=== PATIENT | female | born 1970 | race Caucasian/White ===

== ENCOUNTER 2019-08-29 12:00 | Emergency (ER) | payer OTHER, BC ==
[~2019-08-29] VITALS: Ht 170.2 cm; Wt 93.7 kg
[2019-08-29] MEDS ORDERED: METOCLOPRAMIDE 5 MG/ML, 2ML ONE (12:52)
[2019-08-29] MEDS ORDERED: DIPHENHYDRAMINE 50 MG/ML, 1ML ONE (12:52)
[2019-08-29] MEDS ORDERED: KETOROLAC 30 MG/1 ML ONE (12:52)
[2019-08-29] MEDS ORDERED: METHOCARBAMOL 500 MG TABLET ONE ×2 (12:52→12:53)
[2019-08-29] MEDS ORDERED: METOCLOPRAMIDE 5 MG/ML, 2ML IVPush ONE (13:00)
[2019-08-29] MEDS ORDERED: DIPHENHYDRAMINE 50 MG/ML, 1ML IVPush ONE (13:00)
[2019-08-29] MEDS ORDERED: SODIUM CHLORIDE FLUSH 10ML SYR IVF ONE (13:00)
[2019-08-29] MEDS ORDERED: KETOROLAC 30 MG/1 ML IVPush ONE (13:00)
[2019-08-29] MEDS ORDERED: SODIUM CHLORIDE 0.9% 1,000ML IVBOLUS ONE (13:00)
[2019-08-29] MEDS ORDERED: METHOCARBAMOL 750 MG TABLET PO ONE (13:00)
[2019-08-29 14:01] VITALS: BP 154/89
--- NOTE | 2019-08-29 15:03 | NUR ---
Patient given discharge instructions and they have confirmed that they understand the instructions. Patient ambulatory with steady gait. Pt left with Rx, d/c paperwork, and all personal belongings. NADN. No needs expressed.
== END 2019-08-29 15:06 | disposition home or self-care (01) ==
LOC: ED 14:45
DX: G44.219 Episodic tension-type headache, not intractable (principal); G43.909 Migraine, unspecified, not intractable, without status migrainosus; M62.838 Other muscle spasm; E03.9 Hypothyroidism, unspecified; E11.9 Type 2 diabetes mellitus without complications; Z88.6 Allergy status to analgesic agent; Z88.8 Allergy status to other drugs, medicaments and biological substances
CPT/HCPCS: 96374; 96375; 99283; J1200; J1885; J2765; J7030

== ENCOUNTER 2020-10-26 07:02 | Inpatient (IN) | payer BC, OTHER ==
[~2020-10-26] VITALS: Ht 170.2 cm; Wt 85.0 kg
[2020-10-26] MEDS ORDERED: ASPIRIN 325 MG TABLET PO STA (07:20)
--- NOTE | 2020-10-26 07:20 | NUR ---
MEDICATED WITH 162MG OF ASPIRIN PER EMAR SWABBED FOR COVID AT 07:17AM
[2020-10-26] MEDS ORDERED: FENTANYL PF 100 MCG/2ML ONE (07:29)
[2020-10-26] MEDS ORDERED: MIDAZOLAM 1 MG/ML, 5ML ONE (07:29)
[2020-10-26] MEDS ORDERED: LIDOCAINE 2%, 20ML ONE (07:30)
[2020-10-26] MEDS ORDERED: BIVALIRUDIN 250 MG ONE ×2 (07:30→08:24)
[2020-10-26] MEDS ORDERED: HEPARIN 1,000 UNITS/ML, 10ML ONE (07:30)
[2020-10-26] MEDS ORDERED: TICAGRELOR 90 MG TABLET ONE (07:30)
[2020-10-26 07:35] LABS: BASOPHILS % (AUTO) 0 % (0-1); EOSINOPHILS % (AUTO) 0 % (1-7); LYMPHOCYTES % (AUTO) 15 % (22-44); MEAN CORPUSCULAR HEMOGLOBIN 29.9 pg (27.0-34.8); MEAN CORPUSCULAR HGB CONC 33.7 g/dL (32.4-35.8); MEAN PLATELET VOLUME 7.4 fL (7.4-10.4); MONOCYTES % (AUTO) 4 % (2-9); NEUTROPHILS % (AUTO) 80 % (42-75); PLATELET COUNT 273 x10^3/uL (130-400); RED CELL DISTRIBUTION WIDTH 13.1 % (9.6-15.2)
[2020-10-26 07:36] LABS: MD NO
--- NOTE | 2020-10-26 07:40 | NUR ---
TO PHY THERAPIST AT 0926
--- NOTE | 2020-10-26 07:42 | NUR ---
Patient admitted to the emergency [facility] through triage Triage complete at 0708/Ecg completed at same time Stemi activated at 0710 Full checklist including proper equipment application and consent for angiography completed by Dr. Vaughan by 0716 After clarification that medical laboratory technicians room ready patient transferred at 0740
[2020-10-26] MEDS ORDERED: ASPIRIN 81 MG TABLET CHEW ONE (07:54)
[2020-10-26] MEDS ORDERED: ASPIRIN 325 MG TABLET PO ONE (08:00)
[2020-10-26] MEDS ORDERED: ASPIRIN 81 MG TABLET CHEW PO ONE (08:00)
[2020-10-26] MEDS ORDERED: SODIUM CHLORIDE FLUSH 10ML SYR IVF PRN (08:00)
[2020-10-26 08:06] LABS: INTERNATIONAL NORMALIZED RATIO 0.94 (0.93-1.1)
[2020-10-26] MEDS ORDERED: BIVALIRUDIN 250 MG in SODIUM CHLORIDE 0.9% 50 ML IV SCH (08:30)
[2020-10-26] MEDS ORDERED: SODIUM CHLORIDE 0.9% 1,000 ML IV SCH (08:30)
[2020-10-26] MEDS: ASPIRIN 81 MG TABLET EC PO SCH (08:55)
[2020-10-26] MEDS: TICAGRELOR 90 MG TABLET PO SCH ×2 (08:55→19:54)
[2020-10-26] MEDS ORDERED: METOPROLOL TARTRATE 25 MG TAB PO ONE (09:00)
[2020-10-26] MEDS: ACETAMINOPHEN 325 MG TABLET PO PRN (10:40)
[2020-10-26] MEDS: INSULIN LISPRO 100 UNITS/ML, PEN SQ-INSULIN SCH ×3 (10:40→20:04)
[2020-10-26] MEDS ORDERED: EMPA25TA PO (10:53)
[2020-10-26] MEDS ORDERED: [UNRECOGNIZED DRUG - OTHER] (10:53)
[2020-10-26] MEDS ORDERED: SUMA50TA3 PO (10:53)
[2020-10-26] MEDS ORDERED: DULA1.5P INJ (10:53)
[2020-10-26] MEDS ORDERED: TOPI25TA52 PO (10:53)
[2020-10-26] MEDS ORDERED: LISI10TA2 PO (10:53)
[2020-10-26] MEDS ORDERED: LEVO100T PO (10:53)
[2020-10-26] MEDS ORDERED: phenergan PO (10:53)
[2020-10-26] MEDS ORDERED: SERT-237 PO (10:53)
[2020-10-26] MEDS ORDERED: ADENOSINE 6 MG/2 ML ONE (13:31)
[2020-10-26] MEDS: MORPHINE SULFATE 4 MG/ML, 1ML IVPush PRN ×2 (14:39→19:55)
[2020-10-26] MEDS: METOPROLOL TARTRATE 25 MG TAB PO SCH (17:27)
[2020-10-26] MEDS: ATORVASTATIN 80 MG TABLET PO SCH (19:55)
[2020-10-27 04:31] LABS: ANION GAP 9 mmol/L (5-15); CALCIUM 9.3 mg/dL (8.5-10.1); CHLORIDE 106 mmol/L (98-107)
[2020-10-27] MEDS: METOPROLOL TARTRATE 25 MG TAB PO SCH ×2 (05:42→18:25)
[2020-10-27] MEDS: INSULIN LISPRO 100 UNITS/ML, PEN SQ-INSULIN SCH ×4 (07:00→21:39)
[2020-10-27] MEDS: LEVOTHYROXINE 100 MCG TABLET PO SCH (08:17)
[2020-10-27] MEDS: ASPIRIN 81 MG TABLET EC PO SCH (08:17)
[2020-10-27] MEDS: TOPIRAMATE 25 MG TABLET PO SCH (08:17)
[2020-10-27] MEDS: LISINOPRIL 10 MG TABLET PO SCH (08:17)
[2020-10-27] MEDS: TICAGRELOR 90 MG TABLET PO SCH ×2 (08:17→20:32)
[2020-10-27 14:59] VITALS: BP 98/60
[2020-10-27 19:14] VITALS: BP 112/73
[2020-10-27] MEDS: ATORVASTATIN 80 MG TABLET PO SCH (20:32)
[2020-10-27] MEDS: SERTRALINE 50MG TABLET PO SCH (20:32)
[2020-10-27 20:36] VITALS: BP 115/75
[2020-10-27] MEDS: ACETAMINOPHEN 325 MG TABLET PO PRN (21:38)
[2020-10-28 01:12] VITALS: BP 99/57
[2020-10-28 05:39] VITALS: BP 102/68
[2020-10-28] MEDS: LEVOTHYROXINE 100 MCG TABLET PO SCH (05:42)
[2020-10-28] MEDS: INSULIN LISPRO 100 UNITS/ML, PEN SQ-INSULIN SCH ×4 (05:45→20:46)
[2020-10-28 07:43] VITALS: BP 114/77
[2020-10-28] MEDS: TICAGRELOR 90 MG TABLET PO SCH ×2 (09:40→20:50)
[2020-10-28] MEDS: LISINOPRIL 10 MG TABLET PO SCH (09:40)
[2020-10-28] MEDS: ASPIRIN 81 MG TABLET EC PO SCH (09:40)
[2020-10-28] MEDS: TOPIRAMATE 25 MG TABLET PO SCH (09:40)
[2020-10-28 14:18] VITALS: BP 107/73
[2020-10-28] MEDS ORDERED: METOPROLOL SUCCINATE 25 MG TAB.ER.24H PO SCH (18:00)
[2020-10-28] MEDS: MORPHINE SULFATE 4 MG/ML, 1ML IVPush PRN (19:52)
[2020-10-28] MEDS ORDERED: NITROGLYCERIN 0.4 MG/SPRAY SL PRN (20:00)
[2020-10-28] MEDS ORDERED: NITROGLYCERIN 0.4 MG BOTTLE (25 TABS) SL PRN (20:00)
[2020-10-28 20:22] VITALS: BP 109/73
[2020-10-28] MEDS: ATORVASTATIN 80 MG TABLET PO SCH (20:46)
[2020-10-28] MEDS: SERTRALINE 50MG TABLET PO SCH (20:50)
[2020-10-29 00:52] VITALS: BP 82/50
[2020-10-29 04:57] VITALS: BP 101/66
[2020-10-29] MEDS: LEVOTHYROXINE 100 MCG TABLET PO SCH (04:59)
[2020-10-29 06:08] LABS: BASOPHILS % (AUTO) 1 % (0-1); EOSINOPHILS % (AUTO) 1 % (1-7); LYMPHOCYTES % (AUTO) 23 % (22-44); MEAN PLATELET VOLUME 7.3 fL (7.4-10.4); MONOCYTES % (AUTO) 8 % (2-9); NEUTROPHILS % (AUTO) 68 % (42-75); PLATELET COUNT 271 x10^3/uL (130-400); RED BLOOD COUNT 4.79 x10^6/uL (3.82-5.3); RED CELL DISTRIBUTION WIDTH 13.2 % (9.6-15.2)
[2020-10-29 06:20] LABS: MD NO
[2020-10-29 07:11] LABS: ANION GAP 8 mmol/L (5-15); CALCIUM 9.2 mg/dL (8.5-10.1); CHLORIDE 108 mmol/L (98-107); CHOLESTEROL, TOTAL 170 mg/dL (140-239); CREATININE 0.74 mg/dL (0.55-1.02); TRIGLYCERIDES 141 mg/dL (50-200); VLDL CHOLESTEROL 28 mg/dL (0-25)
[2020-10-29 07:12] LABS: CHOL/HDL RATIO 4.1; HDL CHOL % 24 % (28-40); HDL CHOLESTEROL (DIRECT) 41 mg/dL (40-60); LDL CHOLESTEROL,CALCULATED 101 mg/dL (54-169); LDL/HDL RATIO 2.5 (0.5-3.0)
[2020-10-29 08:09] VITALS: BP 100/68
[2020-10-29] MEDS ORDERED: METO25TA91 PO (08:41)
[2020-10-29] MEDS ORDERED: ATOR-2 PO (08:41)
[2020-10-29] MEDS ORDERED: TICA90TA PO (08:41)
[2020-10-29] MEDS ORDERED: LISI10TA2 PO (08:41)
[2020-10-29] MEDS ORDERED: ASPI81TA45 PO (08:41)
[2020-10-29] MEDS ORDERED: LISINOPRIL 5 MG TABLET PO SCH (09:00)
[2020-10-29] MEDS: TICAGRELOR 90 MG TABLET PO SCH (09:12)
[2020-10-29] MEDS: ASPIRIN 81 MG TABLET EC PO SCH (09:12)
[2020-10-29] MEDS: INSULIN LISPRO 100 UNITS/ML, PEN SQ-INSULIN SCH (09:12)
[2020-10-29] MEDS: TOPIRAMATE 25 MG TABLET PO SCH (09:12)
== END 2020-10-29 11:05 | disposition home or self-care (01) | DRG 247 ==
LOC: ED 07:47 → CSU 08:35 → 5SO 10-27 17:43 → DCLOUNGE 10-29 10:54
PROVIDERS: ADMIT Internal Medicine Clinical Cardiac Electrophysiology; ATTEND Internal Medicine Clinical Cardiac Electrophysiology
PROC: 027034Z Dilation of Coronary Artery, One Artery with Drug-eluting Intraluminal Device, Percutaneous Approach (ICD-10-PCS; principal; 2020-10-26)
PROC: 4A023N7 Measurement of Cardiac Sampling and Pressure, Left Heart, Percutaneous Approach (ICD-10-PCS; 2020-10-26)
PROC: B2111ZZ Fluoroscopy of Multiple Coronary Arteries using Low Osmolar Contrast (ICD-10-PCS; 2020-10-26)
PROC: B2151ZZ Fluoroscopy of Left Heart using Low Osmolar Contrast (ICD-10-PCS; 2020-10-26)
DX: I21.09 ST elevation (STEMI) myocardial infarction involving other coronary artery of anterior wall (principal); E03.9 Hypothyroidism, unspecified; I21.19 ST elevation (STEMI) myocardial infarction involving other coronary artery of inferior wall; E11.9 Type 2 diabetes mellitus without complications; E78.5 Hyperlipidemia, unspecified; E66.9 Obesity, unspecified; G43.909 Migraine, unspecified, not intractable, without status migrainosus; I10 Essential (primary) hypertension; I25.10 Atherosclerotic heart disease of native coronary artery without angina pectoris; I25.5 Ischemic cardiomyopathy; I95.9 Hypotension, unspecified; R42 Dizziness and giddiness; Z20.828 Contact with and (suspected) exposure to other viral communicable diseases; Z68.29 Body mass index [BMI] 29.0-29.9, adult; Z82.49 Family history of ischemic heart disease and other diseases of the circulatory system; Z90.49 Acquired absence of other specified parts of digestive tract; Z88.5 Allergy status to narcotic agent
CPT/HCPCS: 36415; 93458; 96374; 99285; J3490; 71045; 80047; 80048; 80061; 82962; 83036; 84484; 85025; 85610; 85730; 87081; 87635; 93005; 93306; 93356; 99156; 99157; C1769; C1894; G0378; J0153; J0583; J1644; J2250; J3010; C1725; C1874; C1887; J1815; J2270; Q9967

== ENCOUNTER 2020-11-09 14:19 | Inpatient (IN) | payer BC ==
[~2020-11-09] VITALS: Ht 170.2 cm; Wt 75.4 kg
[~2020-11-09 14:19] MED LIST: ASPI81TA45 PO; ATOR-2 PO; DULA1.5P INJ; EMPA25TA PO; LEVO100T PO; LISI10TA2 PO; METO25TA91 PO; SERT-237 PO; SUMA50TA3 PO; TICA90TA PO; TOPI25TA52 PO; [UNRECOGNIZED DRUG - OTHER]; phenergan PO
--- NOTE | 2020-11-09 14:39 | NUR ---
BREAK RN: PATIENT WALKED BACK FROM TRIAGE WITH CHIEF C/O OF CHEST "ACHENESS." PER PATIENT SHE HAD CARDIAC STENT PLACED 10/26/2020, AND STARTED EXPERIENCING CHEST "ACHENESS" THAT MOVES DOWN HER LEFT ARMPIT AND DIZZINESS THIS MORNING. PATIENT WAS SENT TO ER BY HER CARDIOLOGISTS OFFICE FOR POSSIBLE CATH PROCEDURE TO SEE IF STENT HAS MOVED. PATIENT DENIES N/V/D, DENIES SOB, ACCOMPANIED BY SONMarylu MANCERA, CONNECTED TO APPLICATION SUPPORT.
--- NOTE | 2020-11-09 14:41 | NUR ---
BREAK RN: ER PROVIDER AT BEDSIDE FOR EVALUATION.
[2020-11-09] MEDS ORDERED: ASPIRIN 81 MG TABLET CHEW ONE (14:47)
--- NOTE | 2020-11-09 14:50 | NUR ---
BREAK RN: DISTRIBUTION SPEC AT BEDSIDE FOR EKG.
[2020-11-09] MEDS ORDERED: ASPIRIN 81 MG TABLET CHEW PO ONE (15:00)
[2020-11-09] MEDS ORDERED: HEPARIN 5,000 UNITS/ML, 1ML IV PRN (15:00)
[2020-11-09] MEDS ORDERED: HEPARIN 5,000 UNITS/ML, 1ML IV ONE (15:00)
[2020-11-09] MEDS ORDERED: HEPARIN 25,000 UNITS/250ML PMX 250 ML IV PRN ×2 (15:00→17:00)
[2020-11-09 15:13] LABS: BASOPHILS % (AUTO) 0 % (0-1); EOSINOPHILS % (AUTO) 1 % (1-7); LYMPHOCYTES % (AUTO) 27 % (22-44); MEAN CORPUSCULAR HEMOGLOBIN 30.1 pg (27.0-34.8); MEAN CORPUSCULAR HGB CONC 34.2 g/dL (32.4-35.8); MEAN PLATELET VOLUME 7.3 fL (7.4-10.4); MONOCYTES % (AUTO) 6 % (2-9); NEUTROPHILS % (AUTO) 66 % (42-75); PLATELET COUNT 314 x10^3/uL (130-400); RED BLOOD COUNT 5.16 x10^6/uL (3.82-5.3)
[2020-11-09 15:16] LABS: ALANINE AMINOTRANSFERASE 32 U/L (12-78); ALBUMIN 4.4 g/dL (3.4-5.0); ANION GAP 10 mmol/L (5-15); CALCIUM 9.9 mg/dL (8.5-10.1); CHLORIDE 107 mmol/L (98-107); CREATININE 0.93 mg/dL (0.55-1.02)
[2020-11-09 15:17] LABS: MD NO
[2020-11-09 15:20] LABS: ALKALINE PHOSPHATASE 44 U/L (45-117); BILIRUBIN,TOTAL 0.6 mg/dL (0.2-1.0); TOTAL PROTEIN 8.4 g/dL (6.4-8.2); TROPONIN I < 0.015 ng/mL (0.000-0.045)
--- NOTE | 2020-11-09 15:28 | NUR ---
IV PLACED, LABS DRAWN PREVIOUSLY/RESULTS PENDING. VSS. PT STATES PAIN TO L SIDE/UNDERARM RATED 3/10. CALL LIGHT WITHIN REACH.
[2020-11-09] MEDS ORDERED: HEPARIN 25,000 UNITS/250ML PMX 250 ML ONE (15:34)
[2020-11-09] MEDS ORDERED: HEPARIN 5,000 UNITS/ML, 1ML ONE (15:34)
--- NOTE | 2020-11-09 15:46 | NUR ---
HEPARIN BOLUS GIVEN, HEPARIN INFUSING PER ERP ORDER. [facility] IN TO SEE PT.
[2020-11-09] MEDS ORDERED: METO25TA91 PO (15:53)
[2020-11-09] MEDS ORDERED: ONDANSETRON 2MG/ML, 2ML IVPush PRN (16:30)
[2020-11-09] MEDS ORDERED: BUTALB/APAP/CAFFEINE 50MG/325MG/40MG PO PRN (16:30)
[2020-11-09] MEDS ORDERED: ONDANSETRON ODT 4 MG PO PRN (16:30)
[2020-11-09] MEDS ORDERED: ENALAPRILAT 1.25 MG/ML, 2ML IVPush PRN (16:30)
[2020-11-09] MEDS ORDERED: LABETALOL 5MG/ML, 20ML IVPush PRN (16:30)
[2020-11-09] MEDS ORDERED: BACLOFEN 10 MG TABLET PO PRN (16:30)
[2020-11-09] MEDS ORDERED: ACETAMINOPHEN 325 MG TABLET PO PRN (16:30)
[2020-11-09 16:43] LABS: TROPONIN I < 0.015 ng/mL (0.000-0.045)
--- NOTE | 2020-11-09 16:45 | NUR ---
REPORT TO APOLLO STANTON READY FOR TRANSFER
[2020-11-09 17:40] VITALS: BP 120/79
[2020-11-09] MEDS: INSULIN LISPRO 100 UNITS/ML, PEN SQ-INSULIN SCH ×2 (18:12→21:00)
[2020-11-09 19:29] VITALS: BP 115/77
[2020-11-09] MEDS ORDERED: MELATONIN 5 MG TABLET PO SCH (21:00)
[2020-11-09] MEDS ORDERED: ATORVASTATIN 80 MG TABLET PO SCH (21:00)
[2020-11-09] MEDS ORDERED: SERTRALINE 100MG TABLET PO SCH (21:00)
[2020-11-09] MEDS: TICAGRELOR 90 MG TABLET PO SCH (22:08)
[2020-11-09 22:46] LABS: TROPONIN I < 0.015 ng/mL (0.000-0.045)
[2020-11-09] MEDS: HEPARIN 5,000 UNITS/ML, 1ML IV PRN (23:32)
[2020-11-10 01:05] VITALS: BP 100/62
[2020-11-10] MEDS ORDERED: LEVOTHYROXINE 100 MCG TABLET PO SCH (06:00)
[2020-11-10] MEDS: INSULIN LISPRO 100 UNITS/ML, PEN SQ-INSULIN SCH ×3 (07:00→16:00)
[2020-11-10 08:12] VITALS: BP 114/74
[2020-11-10] MEDS: HEPARIN 5,000 UNITS/ML, 1ML IV PRN (08:51)
[2020-11-10] MEDS: TICAGRELOR 90 MG TABLET PO SCH (08:52)
[2020-11-10] MEDS ORDERED: METOPROLOL SUCCINATE 25 MG TAB.ER.24H PO SCH (09:00)
[2020-11-10] MEDS ORDERED: LISINOPRIL 5 MG TABLET PO SCH (09:00)
[2020-11-10] MEDS ORDERED: ASPIRIN 81 MG TABLET EC PO SCH (09:00)
[2020-11-10] MEDS ORDERED: TOPIRAMATE 25 MG TABLET PO SCH (09:00)
[2020-11-10] MEDS ORDERED: TICAGRELOR 90 MG TABLET ONE (13:38)
[2020-11-10] MEDS ORDERED: MIDAZOLAM 1 MG/ML, 5ML ONE (13:38)
[2020-11-10] MEDS ORDERED: FENTANYL PF 100 MCG/2ML ONE (13:38)
[2020-11-10] MEDS ORDERED: HEPARIN 1,000 UNITS/ML, 10ML ONE (13:39)
[2020-11-10] MEDS ORDERED: NITROGLYCERIN 5 MG/ML, 10ML ONE (13:39)
[2020-11-10] MEDS ORDERED: LIDOCAINE 2%, 20ML ONE (13:39)
[2020-11-10] MEDS ORDERED: BIVALIRUDIN 250 MG ONE (13:39)
[2020-11-10] MEDS ORDERED: SODIUM CHLORIDE 0.9% 1,000 ML IV SCH (14:30)
[2020-11-10 15:59] VITALS: BP 112/77
[2020-11-11] MEDS ORDERED: RIME75TA PO (21:08)
[2020-11-11] MEDS ORDERED: NITR0.4T28 SL (21:08)
[2020-11-11] MEDS ORDERED: PROM25TA10 PO (21:09)
== END 2020-11-10 17:41 | disposition home or self-care (01) | DRG 287 ==
LOC: ED 16:38 → ORIP 17:25 → 5SO 17:28
PROVIDERS: ADMIT Family Medicine; ATTEND Family Medicine
PROC: 4A023N7 Measurement of Cardiac Sampling and Pressure, Left Heart, Percutaneous Approach (ICD-10-PCS; principal; 2020-11-10)
PROC: B2111ZZ Fluoroscopy of Multiple Coronary Arteries using Low Osmolar Contrast (ICD-10-PCS; 2020-11-10)
PROC: B2151ZZ Fluoroscopy of Left Heart using Low Osmolar Contrast (ICD-10-PCS; 2020-11-10)
DX: I25.119 Atherosclerotic heart disease of native coronary artery with unspecified angina pectoris (principal); D72.829 Elevated white blood cell count, unspecified; E03.9 Hypothyroidism, unspecified; E11.9 Type 2 diabetes mellitus without complications; E66.9 Obesity, unspecified; Z68.26 Body mass index [BMI] 26.0-26.9, adult; E78.5 Hyperlipidemia, unspecified; F32.9 Major depressive disorder, single episode, unspecified; G43.909 Migraine, unspecified, not intractable, without status migrainosus; I10 Essential (primary) hypertension; I25.5 Ischemic cardiomyopathy; Z87.891 Personal history of nicotine dependence; I25.2 Old myocardial infarction; Z95.5 Presence of coronary angioplasty implant and graft; Z79.899 Other long term (current) drug therapy; Z79.82 Long term (current) use of aspirin
CPT/HCPCS: 36415; 93458; J3490; 71045; 80053; 82962; 84484; 85025; 85520; 93005; 99156; C1769; C1894; G0378; J0583; J1644; J2250; J3010; J7030; Q9967

== ENCOUNTER 2020-11-11 20:36 | Emergency (ER) | payer BC ==
[~2020-11-11] VITALS: Ht 170.2 cm; Wt 85.0 kg
--- NOTE | 2020-11-11 20:54 | NUR ---
ANGIOGRAM YESTERDAY TO CHECK CARDIAC STENT. TODAY, C/O SEVERE PAIN TO RT WRIST ACCESS SITE, RADIATING UP ARM AND TO FINGERS; SLIGHT NUMBNESS TO THUMB AND FIRST TWO FINGERS. C/O PAIN W/ BENDING FINGERS. HAS BEEN TAKING TYLENOL 2 CAPS Q 6HR (LAST DOSE AT 1545); NORCO 5/325MG AT 1600. Addendum: 11/11/20 at 2104 by MARTHA TYLENOL 500MG X 2
--- NOTE | 2020-11-11 21:01 | NUR ---
ILYA Ritter AD COMPOSITOR AT BS FOR EXAM
[2020-11-11] MEDS ORDERED: NITR0.4T28 SL (21:08)
[2020-11-11] MEDS ORDERED: RIME75TA PO (21:08)
[2020-11-11] MEDS ORDERED: PROM25TA10 PO (21:09)
[2020-11-11] MEDS ORDERED: HYDROcodone/APAP 10/325 MG TABLET ONE (21:11)
--- NOTE | 2020-11-11 21:20 | NUR ---
TO U/S PER AIMEE
[2020-11-11] MEDS ORDERED: HYDROcodone/APAP 10/325 MG TABLET PO ONE (21:30)
[2020-11-11] MEDS ORDERED: TAMSULOSIN 0.4 MG CAP.ER.24H PO ONE (21:30)
[2020-11-11 21:52] VITALS: BP 123/77
--- NOTE | 2020-11-11 21:52 | NUR ---
REPORTS NO PAIN RELIEF YET.
--- NOTE | 2020-11-11 21:57 | NUR ---
ICE PACK PROVIDED TO PT.
--- NOTE | 2020-11-11 22:02 | NUR ---
DR BAUMAN AT BS
--- NOTE | 2020-11-11 22:11 | NUR ---
PT REPORT TO JANUARY MEZA. PT CARE TRANSFERRED.
[2020-11-11] MEDS ORDERED: KETOROLAC 60 MG/2 ML ONE (23:58)
[2020-11-12] MEDS ORDERED: KETOROLAC 30 MG/1 ML IM ONE
== END 2020-11-12 00:07 | disposition home or self-care (01) ==
LOC: ED 22:05
DX: L03.113 Cellulitis of right upper limb (principal); M25.531 Pain in right wrist; M79.89 Other specified soft tissue disorders; E11.9 Type 2 diabetes mellitus without complications; I25.2 Old myocardial infarction; I10 Essential (primary) hypertension; E03.9 Hypothyroidism, unspecified; E78.5 Hyperlipidemia, unspecified; G43.909 Migraine, unspecified, not intractable, without status migrainosus
CPT/HCPCS: 93971; 96372; 99284; J1885

== ENCOUNTER 2020-12-01 22:00 | Emergency (ER) | payer BC ==
[~2020-12-01] VITALS: Ht 170.2 cm; Wt 86.6 kg
[~2020-12-01 22:00] MED LIST changes: +LISI10TA19 PO; -LISI10TA2 PO; +NITR0.4T28 SL; +PROM25TA10 PO; +RIME75TA PO
[2020-12-01] MEDS ORDERED: MORPHINE SULFATE 4 MG/ML, 1ML ONE (22:57)
[2020-12-01] MEDS ORDERED: ONDANSETRON 2MG/ML, 2ML ONE (22:57)
[2020-12-01] MEDS ORDERED: MORPHINE SULFATE 4 MG/ML, 1ML IVPush PRN (23:00)
[2020-12-01] MEDS ORDERED: ONDANSETRON 2MG/ML, 2ML IVPush ONE (23:00)
--- NOTE | 2020-12-01 23:11 | NUR ---
PT BIB VIA POV D/T CHEST PAIN THAT RADIATES TO LEFT NECK. PT STATES PAIN IS 7/10. PT MEDICATED PER EMAR. PT HAD STENT PLACED 09/2020. MONITORING IN PLACE, AT BEDSIDE, TAMMY AT THIS TIME, LATRELL.
[2020-12-01 23:25] LABS: BASOPHILS % (AUTO) 1 % (0-1); EOSINOPHILS % (AUTO) 1 % (1-7); LYMPHOCYTES % (AUTO) 29 % (22-44); MEAN CORPUSCULAR HEMOGLOBIN 30.2 pg (27.0-34.8); MEAN CORPUSCULAR HGB CONC 34.6 g/dL (32.4-35.8); MEAN PLATELET VOLUME 7.4 fL (7.4-10.4); MONOCYTES % (AUTO) 6 % (2-9); NEUTROPHILS % (AUTO) 63 % (42-75); PLATELET COUNT 223 x10^3/uL (130-400); RED BLOOD COUNT 4.71 x10^6/uL (3.82-5.3); RED CELL DISTRIBUTION WIDTH 13.6 % (9.6-15.2)
[2020-12-01 23:26] LABS: MD NO
[2020-12-01 23:45] LABS: ALBUMIN 4.2 g/dL (3.4-5.0); ANION GAP 9 mmol/L (5-15); CALCIUM 9.5 mg/dL (8.5-10.1); CHLORIDE 109 mmol/L (98-107)
[2020-12-01 23:49] LABS: TROPONIN I < 0.015 ng/mL (0.000-0.045)
--- NOTE | 2020-12-02 01:20 | NUR ---
PT RESTING IN [place], MONITORING IN PLACE, AT BEDSIDE, UPDATED ON PLAN TO DRAW SECOND TROPONIN, NADN AT THIS TIME, WCTM.
--- NOTE | 2020-12-02 02:00 | NUR ---
Report received from JANUARY Oviedo. This RN to assume care.
[2020-12-02 02:36] LABS: TROPONIN I < 0.015 ng/mL (0.000-0.045)
--- NOTE | 2020-12-02 03:19 | NUR ---
Discharge instructions given. All questions and concerns addressed. Patient ambulatory with a steady gait. Belongings with patient.
[2020-12-02 03:22] VITALS: BP 117/73
== END 2020-12-02 03:21 | disposition home or self-care (01) ==
LOC: ED 12-02 00:06
DX: R07.89 Other chest pain (principal); R06.02 Shortness of breath; I48.91 Unspecified atrial fibrillation; I10 Essential (primary) hypertension; E11.9 Type 2 diabetes mellitus without complications; I25.2 Old myocardial infarction; E03.9 Hypothyroidism, unspecified; E78.5 Hyperlipidemia, unspecified; G43.909 Migraine, unspecified, not intractable, without status migrainosus; Z98.61 Coronary angioplasty status
CPT/HCPCS: 36415; 71045; 80048; 82040; 83880; 84484; 85025; 93005; 96374; 96375; 99285; J2270; J2405

== ENCOUNTER 2021-02-14 16:52 | Emergency (ER) | payer BC ==
[~2021-02-14] VITALS: Ht 170.2 cm; Wt 85.1 kg
--- NOTE | 2021-02-14 17:00 | NUR ---
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
--- NOTE | 2021-02-14 17:14 | NUR ---
PT BIB WC FROM DR. DIAZ'S OFFICE D/T PAIN ON LEFT SIDE OF CHEST AFTER BEING AT [facility]. PT REPORTS SHE ALSO FELT DIZZY AND HAD L ARM HEAVINESS. PT WAS GIVEN 1 NITRO TAB AT [address] DIAZ'S OFFICE. PT REPORTS THIS DID NOT CHANGE THE CP BUT DID MAKE HER FEEL LESS DIZZY. PT HAS HX OF NM WITH 1 STENT PLACEMENT TO LAD ON 10/26/20. PT DENIES FEELING DIZZY CURRENTLY AND DENIES SOB. PT RESTING IN [facility], MONITORING IN PLACE, EKG DONE IN TRIAGE, NADN AT THIS TIME, WCTM.
[2021-02-14] MEDS ORDERED: ASPIRIN 81 MG TABLET CHEW ONE (17:26)
[2021-02-14] MEDS ORDERED: ASPIRIN 81 MG TABLET CHEW PO ONE (17:30)
[2021-02-14 17:36] LABS: BASOPHILS % (AUTO) 1 % (0-1); EOSINOPHILS % (AUTO) 1 % (1-7); LYMPHOCYTES % (AUTO) 32 % (22-44); MEAN CORPUSCULAR HEMOGLOBIN 29.8 pg (27.0-34.8); MEAN CORPUSCULAR HGB CONC 33.9 g/dL (32.4-35.8); MEAN PLATELET VOLUME 7.3 fL (7.4-10.4); MONOCYTES % (AUTO) 7 % (2-9); NEUTROPHILS % (AUTO) 59 % (42-75); PLATELET COUNT 226 x10^3/uL (130-400); RED BLOOD COUNT 4.71 x10^6/uL (3.82-5.3); RED CELL DISTRIBUTION WIDTH 12.6 % (9.6-15.2)
[2021-02-14 17:38] LABS: MD NO
[2021-02-14 17:49] LABS: ALANINE AMINOTRANSFERASE 43 U/L (12-78); ALBUMIN 3.9 g/dL (3.4-5.0); ANION GAP 8 mmol/L (5-15); CALCIUM 9.3 mg/dL (8.5-10.1); CHLORIDE 107 mmol/L (98-107); CREATININE 0.58 mg/dL (0.55-1.02)
[2021-02-14 17:53] LABS: ALKALINE PHOSPHATASE 42 U/L (45-117); BILIRUBIN,TOTAL 0.9 mg/dL (0.2-1.0); TOTAL PROTEIN 7.2 g/dL (6.4-8.2); TROPONIN I < 0.015 ng/mL (0.000-0.045)
--- NOTE | 2021-02-14 18:49 | NUR ---
REPORT GIVEN TO JANUARY CLARKE.
--- NOTE | 2021-02-14 18:56 | NUR ---
RC'VD REPORT FROM FIGUER[facility] SIN AND CARE OF PT ASSUMED. PT DENIES CHEST PAIN/L SHOULDER PAIN AT THIS TIME, STATES THERE IS ONLY A "SLIGHT DISCOMFORT" THAT COMES AND GOES. AT BS. PT UNDERSTANDS PLAN FOR REPEAT TROPONIN AT 1999. NO OTHER NEEDS AT THIS TIME.
[2021-02-14 21:05] LABS: TROPONIN I < 0.015 ng/mL (0.000-0.045)
[2021-02-14 21:30] VITALS: BP 126/63
--- NOTE | 2021-02-14 21:34 | NUR ---
ERP WAS IN FOR RECHECK. PT STATES SHE FEELS FINE, WANTS TO GO HOME.
--- NOTE | 2021-02-14 21:50 | NUR ---
D/C INSTRUCTIONS & F/U APPT RV'WD WITH PT, SHE VERBALIZES UNDERSTANDING. PT AMBULATED OUT OF ED WITH WITHOUT DIFFICULTY.
== END 2021-02-14 21:57 | disposition home or self-care (01) ==
LOC: ED 18:16
DX: R07.89 Other chest pain (principal); R06.02 Shortness of breath; I10 Essential (primary) hypertension; E11.9 Type 2 diabetes mellitus without complications; I25.10 Atherosclerotic heart disease of native coronary artery without angina pectoris; E78.5 Hyperlipidemia, unspecified; E03.9 Hypothyroidism, unspecified
CPT/HCPCS: 36415; 71045; 80053; 84484; 85025; 93005; 99285

== ENCOUNTER 2021-03-14 15:24 | Outpatient (CLI) | payer BC | END 2021-03-14 23:59 | disposition home or self-care (01) | LOC: CFH 15:24 | PROVIDERS: ATTEND Student in an Organized Health Care Education/Training Program | DX: I35.8 Other nonrheumatic aortic valve disorders (principal); I25.10 Atherosclerotic heart disease of native coronary artery without angina pectoris; I25.5 Ischemic cardiomyopathy; R07.89 Other chest pain | CPT/HCPCS: 93306; 93356 ==

== ENCOUNTER 2021-05-29 17:27 | Emergency (ER) | payer BC ==
[~2021-05-29] VITALS: Ht 170.2 cm; Wt 83.9 kg
--- NOTE | 2021-05-29 17:41 | NUR ---
PT AMBULATORY TO ROOM FROM TRIAGE, DECLINED A WHEELCHAIR. PT CHANGED INTO GOWN, ALL MONITORS IN PLACE, CALL LIGHT WITHIN REACH, AT BS. PT STATES "FEELS LIKE SOMEONE IS SQUEEZING MY CHEST", PT C/O LIGHTHEAD, DIZZY, GOODE, NAUSEA, SOB SINCE 12 TODAY. "FEELS SIMILAR TO WHEN I HAD A HEART ATTACK 8 MO AGO".
[2021-05-29] MEDS ORDERED: LIOT5TAB11 PO (17:55)
--- NOTE | 2021-05-29 17:58 | NUR ---
ERP AT BS FOR EVAL
--- NOTE | 2021-05-29 18:10 | NUR ---
xray at bs
[2021-05-29] MEDS ORDERED: MORPHINE SULFATE 4 MG/ML, 1ML ONE ×2 (18:13→19:05)
[2021-05-29] MEDS ORDERED: ONDANSETRON 2MG/ML, 2ML ONE ×2 (18:13→19:15)
[2021-05-29] MEDS ORDERED: NITROGLYCERIN OINT 2%, 1GM TP ONE ×2 (18:14→18:30)
[2021-05-29] MEDS ORDERED: ONDANSETRON 2MG/ML, 2ML IVPush ONE ×2 (18:30→19:30)
[2021-05-29] MEDS ORDERED: SODIUM CHLORIDE FLUSH 10ML SYR IVF ONE (18:30)
[2021-05-29 18:33] LABS: BASOPHILS % (AUTO) 0 % (0-1); EOSINOPHILS % (AUTO) 1 % (1-7); LYMPHOCYTES % (AUTO) 32 % (22-44); MEAN CORPUSCULAR HEMOGLOBIN 29.3 pg (27.0-34.8); MEAN CORPUSCULAR HGB CONC 34.1 g/dL (32.4-35.8); MEAN PLATELET VOLUME 7.6 fL (7.4-10.4); MONOCYTES % (AUTO) 7 % (2-9); NEUTROPHILS % (AUTO) 60 % (42-75); PLATELET COUNT 220 x10^3/uL (130-400); RED CELL DISTRIBUTION WIDTH 13.6 % (9.6-15.2)
--- NOTE | 2021-05-29 18:34 | NUR ---
PIV PLACED, PT MEDICATED PER EMAR. NADN/VSS. CALL LIGHT WITHIN REACH. AT BS. BED IN LOWEST POSITION, BED RAILS UP X2. WCTM
[2021-05-29] MEDS: MORPHINE SULFATE 4 MG/ML, 1ML IVPush PRN ×2 (18:36→19:08)
--- NOTE | 2021-05-29 19:03 | NUR ---
received report from andrew chang. transfer of care.
[2021-05-29] MEDS ORDERED: MORPHINE SULFATE 4 MG/ML, 1ML IVPush PRN (19:30)
--- NOTE | 2021-05-29 19:46 | NUR ---
internal disaster. lab states that lab cmp was unuable due to machine malfunction and will redraw pt CMP and test it in other ER device.
[2021-05-29 21:12] LABS: CALCIUM 9.4 mg/dL (8.5-10.1); CHLORIDE 104 mmol/L (98-107)
[2021-05-29 21:21] LABS: ALANINE AMINOTRANSFERASE 35 U/L (12-78); ALBUMIN 3.8 g/dL (3.4-5.0); ALKALINE PHOSPHATASE 52 U/L (45-117); ANION GAP 4 mmol/L (5-15); BILIRUBIN,TOTAL 0.7 mg/dL (0.2-1.0); CREATININE 0.69 mg/dL (0.55-1.02); TOTAL PROTEIN 7.5 g/dL (6.4-8.2)
--- NOTE | 2021-05-29 21:30 | NUR ---
PT RESTING ON GURNEY RESP EVEN AND UNLABORED NADN, VSS NO NEEDS AT THIS TIME.
[2021-05-29 22:03] LABS: TROPONIN I < 0.015 ng/mL (0.000-0.045)
[2021-05-29 22:46] VITALS: BP 110/68
== END 2021-05-29 23:03 | disposition home or self-care (01) ==
LOC: ED 17:57
DX: R07.2 Precordial pain (principal); R06.02 Shortness of breath; R94.31 Abnormal electrocardiogram [ECG] [EKG]; E11.9 Type 2 diabetes mellitus without complications; I25.10 Atherosclerotic heart disease of native coronary artery without angina pectoris; E78.5 Hyperlipidemia, unspecified; I25.2 Old myocardial infarction; G43.909 Migraine, unspecified, not intractable, without status migrainosus; E03.9 Hypothyroidism, unspecified; Z98.61 Coronary angioplasty status
CPT/HCPCS: 36415; 71045; 80047; 80053; 83880; 84484; 85025; 93005; 96374; 96375; 96376; 99285; J2270; J2405